=== PATIENT | male | born 1995 | race Caucasian/White ===

== ENCOUNTER 2016-07-16 10:49 | Emergency (ER) | payer SELFPAY ==
--- NOTE | 2016-07-16 11:17 | ER Document Report ---
ED Medical Screen (RME) - General Stated Complaint: FOOT PAIN Notes: Patient complains of a rash to both feet and pain since June 05. Has tried [id number] creams without any relief. I have greeted and performed a rapid initial assessment of this patient. A comprehensive ED assessment and evaluation of the patient, analysis of test results and completion of the medical decision making process will be conducted by additional ED providers. TRAVEL OUTSIDE OF THE [place] IN LAST 30 DAYS: No - Related Data Allergies/Adverse Reactions: shellfish derived Allergy (Verified 07/16/16 11:15) Past Medical History Past Surgical History: Reports: Hx Orthopedic Surgery - right hand - Immunizations Hx Diphtheria, Pertussis, Tetanus Vaccination: Yes - Pt reports receiving tetanus vac at age 14-15 Physical Exam - Cardiovascular Rhythm: Regular Heart sounds: Normal auscultation
--- NOTE | 2016-07-16 12:47 | ER Document Report ---
HPI - HPI Patient complains to provider of: plantar feet pain/rash Onset: Other - weeks Onset/Duration: Gradual Quality of pain: Burning Pain Level: 4 Context: 20 yo male that has moist feet due to sweat all day at work hamaria isabel cedeño thinks he has trench foot. Rash, some itching. Associated Symptoms: None Exacerbated by: Denies Relieved by: Denies Similar symptoms previously: No Recently seen / treated by doctor: No - ROS ROS below otherwise negative: Yes Systems Reviewed and Negative: Yes All other systems reviewed and negative - REPRODUCTIVE Reproductive: DENIES: : - DERM Skin Color: Normal Past Medical History - General Information source: Patient - Social History Smoking Status: Current Every Day Smoker Chew tobacco use (# tins/day): No Frequency of alcohol use: None Drug Abuse: None Lives with: Spouse/Significant other Family History: Reviewed & Not Pertinent Patient has suicidal ideation: No Patient has homicidal ideation: No - Medical History Medical History: Negative Renal/ Medical History: Denies: Hx Peritoneal Dialysis Surgical Hx: Negative Past Surgical History: Reports: Hx Orthopedic Surgery - right hand - Immunizations Hx Diphtheria, Pertussis, Tetanus Vaccination: Yes - Pt reports receiving tetanus vac at age 14-15 Vertical Provider Document - CONSTITUTIONAL Agree With Documented VS: Yes Exam Limitations: No Limitations General Appearance: No Apparent Distress - INFECTION CONTROL TRAVEL OUTSIDE OF THE [place] IN LAST 30 DAYS: No - MUSCULOSKELETAL/EXTREMETIES Musculoskeletal/Extremeties: MAEW, FROM - NEURO Level of Consciousness: Awake, Alert - DERM Integumentary: Rash - erythematous plantar distal feet, some white macular subq (look like flat vesicles). No fiffures. Discharge - Discharge Clinical Impression: Athletes foot Qualifiers: Laterality: bilateral Qualified Code(s): B35.3 - Tinea pedis Condition: Good Disposition: HOME, SELF-CARE Instructions: Skin Fungus ([facility]), Topical Antifungal ([facility]) Additional Instructions: keep feet dry, yet socks that wick the moisture away Antifungal cream 3 times a day See the records management coordinator Please complete the patient satisfaction survey if you get one, and return it.. If you do not receive a survey, then you can go to the [facility] website, [email or web address] and place your comments about your very good care. Thank you very much. It was a pleasure being your medical provider today. Prescriptions: Terbinafine HCl [Lamisil At] 45 gm TP TID #45 cream.gm. Forms: Return to Work Referrals: RUBY GANNON DPM [ACTIVE STAFF] - Follow up as needed
[2016-07-16 14:25] VITALS: BP 136/77
== END 2016-07-16 13:52 | disposition home or self-care (01) ==
LOC: ER 10:49
DX: B35.3 Tinea pedis (principal); M79.672 Pain in left foot; M79.671 Pain in right foot; R21 Rash and other nonspecific skin eruption; F17.200 Nicotine dependence, unspecified, uncomplicated
CPT/HCPCS: 99283